=== PATIENT | female | born 1945 | race Caucasian/White ===

== ENCOUNTER 2023-03-06 17:34 | Inpatient (IN) ==
[2023-03-06] MEDS ORDERED: Norepinephrine 16MCG/ML BAGD5W 4,000 MCG/250 ML BAG IV ONE (19:43)
[2023-03-06] MEDS: Norepinephrine 16MCG/ML BAGD5W 4,000 MCG/250 ML BAG IV SCH ×2 (19:50→23:32)
[2023-03-06] MEDS ORDERED: Ondansetron 4 mg VIAL 2 MG/ML 2 ml VIAL IV PRN (20:52)
[2023-03-06] MEDS ORDERED: Piperacillin/Tazobac 3.375 BAG 3.375 GM/100 ML BAG IV ONE (21:06)
[2023-03-06] MEDS ORDERED: Dextrose 50% Syringe 50 ml 25 GM/50 ML SYRINGE IV PUSH PRN (21:34)
[2023-03-06] MEDS ORDERED: Zosyn per Pharmacy NOTE FOLLOW UP SCH (22:00)
[2023-03-06] MEDS: levETIRAcetam 1000MG IVPREMIX 1,000 MG/100 ML BAG IVPB SCH (23:31)
[2023-03-07 00:42] LABS: Calcium 7.7 mg/dL (8.6-10.3); Creatinine, Serum 1.65 mg/dL (0.51-0.95); Potassium 3.5 mmol/L (3.5-5.0)
[2023-03-07] MEDS ORDERED: NS 0.9% 1000 ml BAG 1,000 ML IV SCH (00:45)
[2023-03-07] MEDS: Enoxaparin 30 MG/0.3 ML SYR SUBCUT SCH ×2 (01:45→20:06)
[2023-03-07] MEDS: KCL 20 MEQ/100 ML IVPREMIX 20 MEQ/100 ML BAG IV SCH ×2 (01:45→03:58)
[2023-03-07] MEDS ORDERED: Enoxaparin 40 MG/0.4 ML SYR SUBCUT SCH (02:00)
[2023-03-07] MEDS: Norepinephrine 16MCG/ML BAGD5W 4,000 MCG/250 ML BAG IV SCH ×3 (02:15→09:49)
[2023-03-07] MEDS: ZOSYN 3.375 GM Q8H per EXTENDED INFUSION IV SCH ×3 (04:01→20:06)
[2023-03-07 05:09] LABS: Hematocrit 35.3 % (35-45); Hemoglobin 11.9 g/dL (11.5-14.3); Mean Corpuscular Hemoglobin 29.3 pg (27-33); Mean Corpuscular Hgb Conc 33.7 g/dL (31-36); Mean Corpuscular Volume 86.9 fL (80-97); Mean Platelet Volume 6.8 fL (7.5-11.2); Platelet Count 169 10^3/uL (150-450); Red Blood Count 4.06 10^6/uL (3.63-4.92); Red Cell Distribution Width 14.1 % (12-17); White Blood Count 24.5 10^3/uL (3.8-11.8)
[2023-03-07 05:24] LABS: Albumin/Globulin Ratio 1.1 (1-3); Calcium 7.8 mg/dL (8.6-10.3); Creatinine, Serum 1.57 mg/dL (0.51-0.95); Globulin 2.8 g/dL (2-4); Magnesium 1.8 mg/dL (1.9-2.7); Phosphorus 3.4 mg/dL (2.5-5.0); Total Bilirubin 0.6 mg/dL (0.2-1.0); Total Protein 5.8 g/dL (6.4-8.9)
[2023-03-07 05:39] LABS: ABS Lymphocytes 0.8 10^3/uL (1.0-4.8); ABS Monocytes 0.8 10^3/uL (0.0-0.9); ABS Neutrophils 22.9 10^3/uL (1.5-7.6); Lymphocyte % 3.2 %
[2023-03-07] MEDS ORDERED: Magnesium Sulfate IV 1GM/100ML 1 GM/100 ML BAG IV ONE (06:15)
[2023-03-07] MEDS: levETIRAcetam 1000MG IVPREMIX 1,000 MG/100 ML BAG IVPB SCH (11:02)
[2023-03-07] MEDS ORDERED: Remdesivir 100 mg Vial 200 MG in NS 0.9% 250 ml 210 ML IV ONE (12:01)
[2023-03-07] MEDS ORDERED: Norepinephrine IV 4 MG in NS 0.9% 250 ml 246 ML IV SCH (15:15)
[2023-03-07] MEDS ORDERED: Dextrose 50% Syringe 50 ml 25 GM/50 ML SYRINGE IV PUSH PRN (15:19)
[2023-03-07 17:47] LABS: Calcium 7.4 mg/dL (8.6-10.3); Potassium 3.6 mmol/L (3.5-5.0)
[2023-03-07 17:53] LABS: Creatinine, Serum 1.55 mg/dL (0.51-0.95); eGFR CKD-EPI 34.5 (>60)
[2023-03-07 18:31] LABS: INR 1.32 (0.83-1.13)
[2023-03-07] MEDS ORDERED: Norepinephrine *QUAD STRENGTH* 16 mg/250 mL NS (ICU ONLY) IV SCH (19:00)
[2023-03-07] MEDS ORDERED: NORMOSOL-R pH 7.4 1000 mL BAG 1,000 ML IV SCH (19:00)
[2023-03-07] MEDS: Insulin GLARGINE 100 un/ml 10 ml VIAL SUBCUT SCH (20:07)
[2023-03-08] MEDS: ZOSYN 3.375 GM Q8H per EXTENDED INFUSION IV SCH ×2 (04:19→12:21)
[2023-03-08 06:07] LABS: INR 1.16 (0.83-1.13)
[2023-03-08 06:19] LABS: ABS Basophils 0.1 10^3/uL (0.0-0.1); ABS Eosinophils 0.1 10^3/uL (0.0-0.5); ABS Lymphocytes 0.7 10^3/uL (1.0-4.8); ABS Monocytes 0.8 10^3/uL (0.0-0.9); ABS Neutrophils 16.5 10^3/uL (1.5-7.6); ABS Nucleated RBC 0.01 10^3/ul; Eosinophil % 0.7 %; Lymphocyte % 3.8 %; Mean Corpuscular Hemoglobin 28.8 pg (27-33); Mean Corpuscular Hgb Conc 33.3 g/dL (31-36); Mean Corpuscular Volume 86.4 fL (80-97); Mean Platelet Volume 7.5 fL (7.5-11.2); Platelet Count 157 10^3/uL (150-450); Red Blood Count 3.82 10^6/uL (3.63-4.92); Red Cell Distribution Width 14.5 % (12-17); White Blood Count 18.1 10^3/uL (3.8-11.8)
[2023-03-08 06:22] LABS: Albumin 2.6 g/dL (3.2-5.2); Albumin/Globulin Ratio 0.9 (1-3); Calcium 7.2 mg/dL (8.6-10.3); Creatinine, Serum 1.43 mg/dL (0.51-0.95); Globulin 2.8 g/dL (2-4); Potassium 3.1 mmol/L (3.5-5.0); Total Bilirubin 0.5 mg/dL (0.2-1.0); Total Protein 5.4 g/dL (6.4-8.9)
[2023-03-08] MEDS: KCL 20 MEQ/100 ML IVPREMIX 20 MEQ/100 ML BAG IV SCH ×2 (08:06→09:38)
[2023-03-08 08:12] LABS: Magnesium 2.3 mg/dL (1.9-2.7)
[2023-03-08] MEDS ORDERED: Sulfur Hexaflouride MICROSPHR 25 MG VIAL ONE (08:59)
[2023-03-08] MEDS: Acetaminophen IV 1 GM/100ML 1,000 MG/100 ML BAG IV SCH ×2 (09:17→16:15)
[2023-03-08] MEDS: Remdesivir 100 mg Vial 100 MG in NS 0.9% 250 ml 230 ML IV SCH (09:38)
[2023-03-08 11:38] LABS: PCO2 Arterial 25 mmHg (35-45); PO2 Arterial 97 mmHg (80-100)
[2023-03-08] MEDS ORDERED: Lactated Ringers 1000 ml BAG 500 ML IV ONE ×2 (13:03→17:17)
[2023-03-08 13:52] LABS: Calcium 6.9 mg/dL (8.6-10.3); Potassium 3.4 mmol/L (3.5-5.0)
[2023-03-08 13:58] LABS: Creatinine, Serum 1.38 mg/dL (0.51-0.95); eGFR CKD-EPI 39.7 (>60)
[2023-03-08] MEDS ORDERED: Potassium Chlor 20 meq TAB.ER PO ONE (15:26)
[2023-03-08] MEDS: guaiFENesin/CODIENE 100mg/10mg 5 ML UDC PO PRN ×2 (16:15→22:16)
[2023-03-08] MEDS: cefTRIAXone 1 gm/50 mL D5W 1 GM/50 ML BAG IV SCH (17:05)
[2023-03-08] MEDS ORDERED: Norepinephrine 16MCG/ML BAG NS 4,000 MCG/250 ML BAG IV SCH (18:00)
[2023-03-08] MEDS ORDERED: Norepinephrine *QUAD STRENGTH* 16 mg/250 mL NS (ICU ONLY) IV SCH (18:20)
[2023-03-08] MEDS: Insulin GLARGINE 100 un/ml 10 ml VIAL SUBCUT SCH (20:42)
[2023-03-08] MEDS: Enoxaparin 30 MG/0.3 ML SYR SUBCUT SCH (20:43)
[2023-03-09] MEDS: Acetaminophen IV 1 GM/100ML 1,000 MG/100 ML BAG IV SCH ×2 (01:11→08:41)
[2023-03-09 04:18] LABS: ABS Eosinophils 0.1 10^3/uL (0.0-0.5); ABS Lymphocytes 0.6 10^3/uL (1.0-4.8); ABS Monocytes 0.5 10^3/uL (0.0-0.9); ABS Neutrophils 7.9 10^3/uL (1.5-7.6); Eosinophil % 0.9 %; Hematocrit 28.9 % (35-45); Lymphocyte % 6.7 %; Mean Corpuscular Hemoglobin 29.5 pg (27-33); Mean Corpuscular Hgb Conc 34.5 g/dL (31-36); Mean Corpuscular Volume 85.6 fL (80-97); Mean Platelet Volume 7.3 fL (7.5-11.2); Platelet Count 103 10^3/uL (150-450); Red Blood Count 3.38 10^6/uL (3.63-4.92); Red Cell Distribution Width 14.4 % (12-17); White Blood Count 9.1 10^3/uL (3.8-11.8)
[2023-03-09 04:29] LABS: INR 1.26 (0.83-1.13)
[2023-03-09 04:33] LABS: Albumin 2.5 g/dL (3.2-5.2); Calcium 7.1 mg/dL (8.6-10.3); Creatinine, Serum 1.04 mg/dL (0.51-0.95); Globulin 2.4 g/dL (2-4); Potassium 3.4 mmol/L (3.5-5.0); Total Bilirubin 0.5 mg/dL (0.2-1.0); Total Protein 4.9 g/dL (6.4-8.9); eGFR CKD-EPI 55.7 (>60)
[2023-03-09] MEDS: KCL 20 MEQ/100 ML IVPREMIX 20 MEQ/100 ML BAG IV SCH ×2 (05:53→09:13)
[2023-03-09] MEDS ORDERED: Potassium Chlor 20 meq TAB.ER PO ONE (08:03)
[2023-03-09] MEDS: guaiFENesin/CODIENE 100mg/10mg 5 ML UDC PO PRN ×2 (08:42→15:50)
[2023-03-09] MEDS: Remdesivir 100 mg Vial 100 MG in NS 0.9% 250 ml 230 ML IV SCH (08:42)
[2023-03-09] MEDS ORDERED: Acetaminophen IV 1 GM/100ML 1,000 MG/100 ML BAG IV PRN (12:22)
[2023-03-09] MEDS: cefTRIAXone 1 gm/50 mL D5W 1 GM/50 ML BAG IV SCH (15:50)
[2023-03-09] MEDS: Enoxaparin 30 MG/0.3 ML SYR SUBCUT SCH (21:21)
[2023-03-09] MEDS: Insulin GLARGINE 100 un/ml 10 ml VIAL SUBCUT SCH (21:21)
[2023-03-10 05:37] LABS: Hematocrit 31.4 % (35-45); Hemoglobin 10.7 g/dL (11.5-14.3); Mean Corpuscular Hemoglobin 29.3 pg (27-33); Mean Corpuscular Hgb Conc 34.1 g/dL (31-36); Mean Platelet Volume 7.7 fL (7.5-11.2); Platelet Count 123 10^3/uL (150-450); Red Blood Count 3.65 10^6/uL (3.63-4.92); Red Cell Distribution Width 14.3 % (12-17)
[2023-03-10 05:56] LABS: Calcium 7.7 mg/dL (8.6-10.3); Creatinine, Serum 0.9 mg/dL (0.51-0.95); Magnesium 1.7 mg/dL (1.9-2.7); Potassium 3.7 mmol/L (3.5-5.0); eGFR CKD-EPI 66.3 (>60)
[2023-03-10 06:16] LABS: ABS Eosinophils 0.1 10^3/uL (0.0-0.5); ABS Monocytes 0.8 10^3/uL (0.0-0.9); ABS Neutrophils 8.1 10^3/uL (1.5-7.6); Eosinophil % 0.8 %; Lymphocyte % 9.9 %
[2023-03-10] MEDS ORDERED: Potassium Chlor 20 meq TAB.ER PO ONE (07:08)
[2023-03-10] MEDS ORDERED: Magnesium Sulfate 2 gm BAG 2 GM/50 ML BAG IVPB ONE (07:08)
[2023-03-10] MEDS: guaiFENesin/CODIENE 100mg/10mg 5 ML UDC PO PRN (12:29)
[2023-03-10] MEDS: cefTRIAXone 1 gm/50 mL D5W 1 GM/50 ML BAG IV SCH (15:57)
[2023-03-10] MEDS: Enoxaparin 30 MG/0.3 ML SYR SUBCUT SCH (22:15)
[2023-03-10] MEDS: Insulin GLARGINE 100 un/ml 10 ml VIAL SUBCUT SCH (22:16)
[2023-03-11] MEDS: guaiFENesin/CODIENE 100mg/10mg 5 ML UDC PO PRN (01:37)
[2023-03-11 06:49] LABS: ABS Eosinophils 0.1 10^3/uL (0.0-0.5); ABS Lymphocytes 1.1 10^3/uL (1.0-4.8); ABS Monocytes 0.9 10^3/uL (0.0-0.9); ABS Neutrophils 7.6 10^3/uL (1.5-7.6); Eosinophil % 1.3 %; Hematocrit 30.2 % (35-45); Hemoglobin 10.4 g/dL (11.5-14.3); Mean Corpuscular Hemoglobin 29.3 pg (27-33); Mean Corpuscular Hgb Conc 34.4 g/dL (31-36); Mean Corpuscular Volume 85.1 fL (80-97); Mean Platelet Volume 8.2 fL (7.5-11.2); Platelet Count 129 10^3/uL (150-450); Red Blood Count 3.54 10^6/uL (3.63-4.92); Red Cell Distribution Width 14.3 % (12-17); White Blood Count 9.7 10^3/uL (3.8-11.8)
[2023-03-11 07:03] LABS: Creatinine, Serum 0.77 mg/dL (0.51-0.95); Magnesium 1.5 mg/dL (1.9-2.7); Potassium 3.8 mmol/L (3.5-5.0); eGFR CKD-EPI 79.9 (>60)
[2023-03-11] MEDS ORDERED: Amoxicillin/Clavul 875/125 TAB (Augmentin 875 tab) PO SCH (09:00)
[2023-03-11] MEDS: cefTRIAXone 1 gm/50 mL D5W 1 GM/50 ML BAG IV SCH (17:52)
[2023-03-11] MEDS ORDERED: Magnesium Sulfate 2 gm BAG 2 GM/50 ML BAG IVPB ONE (19:51)
[2023-03-11] MEDS: Insulin GLARGINE 100 un/ml 10 ml VIAL SUBCUT SCH (21:38)
[2023-03-11] MEDS: Amoxicillin/Clavul 500/125 TAB (Augmentin 500 mg tab) PO SCH (21:38)
[2023-03-11] MEDS: Enoxaparin 30 MG/0.3 ML SYR SUBCUT SCH (21:38)
[2023-03-12 07:18] LABS: Calcium 8.1 mg/dL (8.6-10.3); Creatinine, Serum 0.71 mg/dL (0.51-0.95); eGFR CKD-EPI 88.1 (>60)
[2023-03-12 08:58] VITALS: BP 105/65
[2023-03-12] MEDS: Amoxicillin/Clavul 500/125 TAB (Augmentin 500 mg tab) PO SCH (09:17)
== END 2023-03-12 15:00 | DRG 871 ==
LOC: ICU 20:54 → MED 03-10 17:46
PROVIDERS: ADMIT Internal Medicine; ATTEND Hospitalist

== ENCOUNTER 2023-10-28 20:24 | Inpatient (IN) ==
[2023-10-28 22:56] LABS: ABS Basophils 0.2 10^3/uL (0.0-0.1); ABS Lymphocytes 0.9 10^3/uL (1.0-4.8); ABS Monocytes 1.3 10^3/uL (0.0-0.9); ABS Neutrophils 19.3 10^3/uL (1.5-7.6); Eosinophil % 0.1 %; Hematocrit 35.4 % (35-45); Hemoglobin 11.5 g/dL (11.5-14.3); Lymphocyte % 4.3 %; Mean Corpuscular Hemoglobin 28.4 pg (27-33); Mean Corpuscular Hgb Conc 32.5 g/dL (31-36); Mean Corpuscular Volume 87.2 fL (80-97); Mean Platelet Volume 6.4 fL (7.5-11.2); Platelet Count 207 10^3/uL (150-450); Red Blood Count 4.06 10^6/uL (3.63-4.92); Red Cell Distribution Width 14.3 % (12-17); White Blood Count 21.8 10^3/uL (3.8-11.8)
[2023-10-28] MEDS ORDERED: Vancomycin per Pharmacy 1 EA NOTE FOLLOW UP SCH (23:00)
[2023-10-28 23:19] LABS: Urine Appearance Turbid; Urine Bilirubin Negative (Negative); Urine Blood 2+ (Negative); Urine Color Light-Yellow; Urine Glucose Negative (Negative); Urine Ketones Trace (Negative); Urine Nitrite Negative (Negative); Urine Protein 1+ (>=30 mg/dL) (Negative); Urine Specific Gravity 1.016 (1.002-1.030); Urine Urobilinogen Negative (Negative); Urine pH 6.5 (5.0-8.0)
[2023-10-28] MEDS: NS 0.9% 1000 ml BAG 1,000 ML IV SCH (23:24)
[2023-10-28] MEDS: Heparin 5000 UNITS/ML 1 mL VIAL SUBCUT SCH (23:24)
[2023-10-28 23:30] LABS: C Reactive Protein 257.64 mg/L (<8.01); Calcium 7.7 mg/dL (8.6-10.3); Creatinine, Serum 1.29 mg/dL (0.51-0.95); Potassium 4.3 mmol/L (3.5-5.0); eGFR CKD-EPI 42.7 (>60)
[2023-10-28] MEDS ORDERED: Dextrose 50% Syringe 50 ml 25 GM/50 ML SYRINGE IV PUSH PRN (23:35)
[2023-10-28 23:50] LABS: Urine Bacteria Absent /HPF (Absent); Urine Red Blood Cell 1+(3-5/hpf) /HPF (0-Trace); Urine Squamous Epithelial Cell Present /HPF (Absent); Urine Transitional Epithelial Present /HPF (Absent); Urine White Blood Cell 3+(>20/hpf) /HPF (0-Trace)
[2023-10-29] MEDS: Insulin GLARGINE 100 un/ml 10 ml VIAL SUBCUT SCH ×2 (02:52→19:52)
[2023-10-29] MEDS ORDERED: Cefepime ADVAN 1 GM in NS 0.9% 50 ML 50 ML IVPB SCH (06:00)
[2023-10-29 06:25] LABS: ABS Lymphocytes 1.2 10^3/uL (1.0-4.8); ABS Monocytes 1.3 10^3/uL (0.0-0.9); ABS Neutrophils 18.5 10^3/uL (1.5-7.6); ABS Nucleated RBC 0.01 10^3/ul; Eosinophil % 0.1 %; Hematocrit 35.3 % (35-45); Hemoglobin 11.6 g/dL (11.5-14.3); Lymphocyte % 5.5 %; Mean Corpuscular Hemoglobin 28.7 pg (27-33); Mean Corpuscular Volume 86.9 fL (80-97); Mean Platelet Volume 6.6 fL (7.5-11.2); Platelet Count 191 10^3/uL (150-450); Red Blood Count 4.06 10^6/uL (3.63-4.92); Red Cell Distribution Width 14.5 % (12-17)
[2023-10-29 06:39] LABS: Calcium 7.6 mg/dL (8.6-10.3); Creatinine, Serum 1.25 mg/dL (0.51-0.95); Potassium 3.9 mmol/L (3.5-5.0); eGFR CKD-EPI 44.4 (>60)
[2023-10-29] MEDS: Cefepime 1 GM in Dextrose 1 GM/50 ML BAG IV SCH (09:15)
[2023-10-29] MEDS: NF: Olopatadine 0.2% (NF) 1 DROP BTL BOTH EYES SCH (09:23)
[2023-10-29] MEDS ORDERED: Vancomycin 1,250 MG in NS 0.9% 250 ml 250 ML IVPB SCH (12:00)
[2023-10-29] MEDS: Vancomycin 1000 MG in NS 0.9% 250 ML IVPB SCH (12:45)
[2023-10-29] MEDS: NS 0.9% 1000 ml BAG 1,000 ML IV SCH ×2 (14:50→20:02)
[2023-10-29] MEDS: cefTRIAXone 1 gm/50 mL D5W 1 GM/50 ML BAG IV SCH (16:42)
[2023-10-30 06:48] LABS: ABS Eosinophils 0.1 10^3/uL (0.0-0.5); ABS Lymphocytes 0.8 10^3/uL (1.0-4.8); ABS Monocytes 0.9 10^3/uL (0.0-0.9); ABS Neutrophils 10.7 10^3/uL (1.5-7.6); ABS Nucleated RBC 0.01 10^3/ul; Eosinophil % 0.8 %; Hematocrit 32.1 % (35-45); Lymphocyte % 6.1 %; Mean Corpuscular Hemoglobin 29.3 pg (27-33); Mean Corpuscular Hgb Conc 34.1 g/dL (31-36); Mean Corpuscular Volume 85.8 fL (80-97); Mean Platelet Volume 6.6 fL (7.5-11.2); Nucleated Red Blood Cells % 0.1 %/100WBC (0.0-0.8); Platelet Count 179 10^3/uL (150-450); Red Blood Count 3.74 10^6/uL (3.63-4.92); Red Cell Distribution Width 14.3 % (12-17); White Blood Count 12.5 10^3/uL (3.8-11.8)
[2023-10-30 07:07] LABS: Calcium 7.3 mg/dL (8.6-10.3); Creatinine, Serum 0.79 mg/dL (0.51-0.95); Magnesium 1.6 mg/dL (1.9-2.7); Potassium 3.4 mmol/L (3.5-5.0)
[2023-10-30] MEDS: Potassium Chlor 20 meq TAB.ER PO ONE (10:28)
[2023-10-30] MEDS: Magnesium Sulfate 2 gm BAG 2 GM/50 ML BAG IVPB ONE (10:28)
[2023-10-30] MEDS: Magnesium Sulfate IV 1GM/100ML 1 GM/100 ML BAG IV ONE (11:32)
[2023-10-30] MEDS: Insulin GLARGINE 100 un/ml 10 ml VIAL SUBCUT SCH (22:06)
[2023-10-31 05:48] LABS: ABS Eosinophils 0.2 10^3/uL (0.0-0.5); ABS Lymphocytes 1.3 10^3/uL (1.0-4.8); ABS Nucleated RBC 0.01 10^3/ul; Hematocrit 29.9 % (35-45); Hemoglobin 10.2 g/dL (11.5-14.3); Lymphocyte % 12.2 %; Mean Corpuscular Hemoglobin 28.9 pg (27-33); Mean Corpuscular Hgb Conc 34.2 g/dL (31-36); Mean Corpuscular Volume 84.6 fL (80-97); Mean Platelet Volume 6.8 fL (7.5-11.2); Platelet Count 205 10^3/uL (150-450); Red Blood Count 3.53 10^6/uL (3.63-4.92); Red Cell Distribution Width 13.9 % (12-17); White Blood Count 10.6 10^3/uL (3.8-11.8)
[2023-10-31 06:27] LABS: Calcium 7.6 mg/dL (8.6-10.3); Creatinine, Serum 0.7 mg/dL (0.51-0.95); Potassium 3.8 mmol/L (3.5-5.0)
[2023-10-31] MEDS ORDERED: Vancomycin Trough Check NOTE FOLLOW UP ONE (11:30)
[2023-11-01 11:57] VITALS: BP 121/60
[2023-11-01] MEDS ORDERED: Amoxicillin/Clavul 875/125 TAB (Augmentin 875 tab) PO SCH (21:00)
== END 2023-11-01 14:30 | disposition home or self-care (01) | DRG 872 ==
LOC: ED 20:24 → EDHOLD 22:18 → MED 10-29 00:07
PROVIDERS: ADMIT Student in an Organized Health Care Education/Training Program; ATTEND Hospitalist